=== PATIENT | male | born 1960 | race Caucasian/White ===

== ENCOUNTER 2017-02-16 08:36 | Emergency (ER) | payer BC ==
[~2017-02-16 08:36] MED LIST: ASA5GR PO; BEN25 PO; CLARIT10 PO; CYTOXAN500 MG IJ; KLOR-CON M2020 MEQ PO; L40 PO; LEVAQUIN750 MG PO; MEDROLPAK4 PO; NEUR300 PO; NO MEDICATIONS; NORCO1 TA1 PO; OXYCOD PO; PR25 PO; RITUXAN; STERAP512; VINCRISTINE IV; VITAMIN B-121000 MC1 SL; X25 PO; ZANTAC150 MG PO; [UNRECOGNIZED DRUG - OTHER] PO
== END 2017-02-16 09:10 | disposition home or self-care (01) ==
LOC: ER 08:36
DX: H93.8X2 Other specified disorders of left ear (principal); Z79.899 Other long term (current) drug therapy; Z79.82 Long term (current) use of aspirin
CPT/HCPCS: 99282